=== PATIENT | male | born 1985 ===

== ENCOUNTER → 2017-05-21 | Outpatient (REF) | payer OTHER ==
[2017-05-21 12:52] LABS: % NORMAL FORMS 8 % (>=4); IMMOTILITY 55 %; NON PROGRESSIVE MOTILITY (c) 9 %; PROGRESSIVE MOTILITY (a) 36 % (>=32); SPERM# 133.3 M/Ejac (33-46); TOTAL FUNCTIONAL 8.9 M/Ejac.; TOTAL MOTILITY 45 % (>=40); TOTAL PROGRESSIVE SPERM 47.5 M/Ejac.
== END ==
LOC: M LAB REF 12:01
PROVIDERS: ATTEND Obstetrics & Gynecology Reproductive Endocrinology
DX: N46.9 Male infertility, unspecified (principal)